=== PATIENT | male | born 1950 | race Caucasian/White ===

== ENCOUNTER → 2023-10-13 09:33 | Outpatient (REF) | payer OTHER, SELFPAY | LOC: MRI 3T 09:33 | PROVIDERS: ATTENDING PHYSICIAN Nurse Practitioner Family | DX: H54.62 Unqualified visual loss, left eye, normal vision right eye (principal) | CPT/HCPCS: 70553; A9575 ==

== ENCOUNTER → 2024-03-02 09:03 | Outpatient (REF) | payer OTHER, SELFPAY | LOC: RAD 09:03 | PROVIDERS: ATTENDING PHYSICIAN Nurse Practitioner Family | DX: E78.2 Mixed hyperlipidemia (principal); R03.0 Elevated blood-pressure reading, without diagnosis of hypertension; H34.8120 Central retinal vein occlusion, left eye, with macular edema | CPT/HCPCS: 93005 ==

== ENCOUNTER → 2024-10-28 10:35 | Outpatient (REF) | payer OTHER, SELFPAY | LOC: HWRAD 10:35 | PROVIDERS: ATTENDING PHYSICIAN Nurse Practitioner Family | DX: Z00.00 Encounter for general adult medical examination without abnormal findings (principal); Z87.891 Personal history of nicotine dependence | CPT/HCPCS: 76770 ==

== ENCOUNTER → 2024-11-01 13:43 | Outpatient (REF) | payer OTHER, SELFPAY | LOC: RCS 13:43 | PROVIDERS: ATTENDING PHYSICIAN Nurse Practitioner Family | DX: Z00.00 Encounter for general adult medical examination without abnormal findings (principal); E78.2 Mixed hyperlipidemia; R03.0 Elevated blood-pressure reading, without diagnosis of hypertension; Z87.891 Personal history of nicotine dependence | CPT/HCPCS: 93017 ==

== ENCOUNTER → 2025-01-31 14:42 | Outpatient (REF) | payer OTHER, SELFPAY | LOC: RAD 14:42 | PROVIDERS: ATTENDING PHYSICIAN Nurse Practitioner Family | DX: I77.1 Stricture of artery (principal) | CPT/HCPCS: 93922; 93925 ==